=== PATIENT | female | born 1985 | race Caucasian/White ===

== ENCOUNTER 2021-05-26 11:15 | Outpatient (CLI) | payer OTHER, SELFPAY ==
--- NOTE | ~2021-05-26 | MMUS_ITS ---
EXAMINATION: MM diagnostic frederick BI w awais, US breast BI complete HISTORY: Right breast lump, pain TECHNIQUE: ML, MLO and craniocaudal 3-D tomosynthesis images of both breasts were performed and synth etic 2-D images were generated. CAD analysis was submitted and interpreted. High resolution complete bilateral breast ultrasound was performed. COMPARISON: None BREAST PARENCHYMAL COMPOSITION: The breasts are extremely dense, which lowers the sensitivity of mamm ography. FINDINGS: MAMMOGRAPHIC FINDINGS: Scattered punctate benign microcalcifications are noted throughout both breasts. No suspicious mass or architectural distortion, malignant calcification, skin thickening or retractio n of either breast is detected. ULTRASOUND: No suspicious mass or shadowing of either breast is detected. Right breast 3:00 2 cm from nipple: Parallel circumscribed hypoechoic 2.5 x 3.8 x 4.1 mm lesion witho ut suspicious shadowing or internal vascularity, consistent with benign process Left breast 9:00 7 cm from nipple: Parallel circumscribed hypoechoic 3.2 x 2.4 x 3.0 mm lesion withou t internal vascularity or suspicious shadowing Left breast 1:00 8 cm from nipple: Parallel circumscribed hypoechoic 2.3 x 3.4 x 2.8 mm lesion with t hrough transmission posterior enhancement, consistent with benign process, likely cyst IMPRESSION: 1. Benign findings 2. No mammographic evidence of malignancy Routine mammographic screening is recommended Reviewed, dictated and finalized at location A. IMPRESSION: 1. Benign findings 2. No mammographic evidence of malignancy Routine mammographic screening is recommended
== END 2021-05-26 11:16 | disposition home or self-care (01) ==
LOC: ANHIMG 11:21
PROVIDERS: Visit Provider Obstetrics & Gynecology
DX: N64.4 Mastodynia (principal)
CPT/HCPCS: 76641; 77062; 77066; G0279

== ENCOUNTER 2022-06-06 13:20 | Outpatient (CLI) | payer OTHER, SELFPAY ==
--- NOTE | ~2022-06-06 | MMUS_ITS ---
EXAMINATION: MM diagnostic frederick BI w awais, US breast RT limited HISTORY: Palpable lump in the upper outer quadrant of the right breast. TECHNIQUE: Craniocaudal, mediolateral, and mediolateral oblique 3-D tomosynthesis images of the breas ts were performed and synthetic 2-D images were generated. CAD analysis was submitted and interpreted . High resolution limited right breast ultrasound was performed. COMPARISON: 05/26/2021 BREAST PARENCHYMAL COMPOSITION: The breasts are extremely dense, which lowers the sensitivity of mamm ography. FINDINGS: MAMMOGRAPHIC FINDINGS: There is no suspicious mass, calcification, or architectural distortion in either breast to suggest malignancy. There has been no suspicious interval change. No mammographic correlate is identified for the reported palpable abnormality of the right breast. ULTRASOUND: There is no evidence of focal abnormal solid or cystic mass in the vicinity of the reported palpable abnormality of the right breast. IMPRESSION: 1. No specific mammographic or sonographic correlate is identified for the reported palpable abnormal ity of concern. Further evaluation at this time should be based on clinical assessment. Continued fol low-up physical examination is recommended. 2. Recommend routine screening mammography in one year. BI-RADS Category 1: Negative Reviewed, dictated and finalized at location A. IMPRESSION: 1. No specific mammographic or sonographic correlate is identified for the repo rted palpable abnormality of concern. Further evaluation at this time should be based on clinical assessment. Continued follow-up physical examination is massiel mmended. 2. Recommend routine screening mammography in one year. BI-RADS Category 1: Negative
== END 2022-06-06 13:21 | disposition home or self-care (01) ==
PROVIDERS: Visit Provider Nurse Practitioner
DX: N63.11 Unspecified lump in the right breast, upper outer quadrant (principal)
CPT/HCPCS: 76642; 77062; 77066; G0279

== ENCOUNTER 2024-04-20 19:06 | Emergency (ER) | payer BC, SELFPAY ==
--- NOTE | 2024-04-20 19:07 | ED.FEMALEGU ---
HPI - Female Genitourinary General Chief complaint: Urogenital-Female Stated complaint: Uti Symptoms Time Seen by Provider: 04/20/24 19:16 Source: patient and RN notes reviewed Mode of arrival: ambulatory Limitations: no limitations History of Present Illness HPI Narrative: 39-year-old female presents with concern for burning with urination, frequency, suprapubic pressure. Reports that started this evening. Reports history of urinary tract infections. She took azo an hour ago. She reports she has had frequent urinary tract infections, this is the 3rd 1 this year. She denies fever, aches, chills, sweats, nausea, vomiting, back pain, hematuria MD elicited complaint: UTI Related Data Home Medications Medication Instructions Recorded Confirmed sertraline 25 mg tablet 25 mg PO DAILY 04/20/24 04/20/24 Allergies Allergy/AdvReac Type Severity Reaction Status Date / Time Penicillins Allergy Mild Rash Unverified 04/20/24 19:10 nitrofurantoin Allergy Hives Verified 04/20/24 19:19 [From Macrobid] Review of Systems Review of Systems: CONSTITUTIONAL: Denies malaise, chills, sweats, or fever. CARDIOVASCULAR: Denies chest pain, palpitations, or edema. RESPIRATORY: Denies cough or dyspnea. GASTROINTESTINAL: Denies abdominal pain, nausea, vomiting, diarrhea GENITOURINARY: Reports dysuria, frequency, urgency, suprapubic pressure. Denies flank pain or hematuria. SKIN: Denies rash or itching. MUSCULOSKELETAL: Denies back pain or myalgia. All systems reviewed & are unremarkable except as noted in HPI and below PMFSH Social History Social History (System 06/16/21 @ 09:52 by Nell Bean) Second hand tobacco smoke exposure: No Alcohol intake: current Comments At time of signature, agree with nursing past medical, surgical, social and family history. There is no relevant family history pertinent to the presenting complaint Exam Narrative: GENERAL: Well-appearing, well-nourished, and in no acute distress. HEAD: Normocephalic. EYES: PERRLA, conjunctivae clear. NECK: Supple. No lymphadenopathy CHEST: Clear to auscultation. No respiratory distress. HEART: Regular rate and rhythm. ABDOMEN: Soft, nontender upon palpation, nondistended, normal active bowel sounds, no palpable or pulsatile masses, no guarding. No CVA tenderness SKIN: Warm, dry, no rash. NEURO: Alert and oriented x3. PSYCH: Normal mood and affect Course Course Emergency Course: Patient is aware of diagnosis, understands and agrees to treatment plan. Anticipatory guidance given. Patient agrees to follow-up as directed and is aware of reasons to seek care at the emergency department. Portions of this record may have been created with voice recognition software Level of Care: Express Care Visit Vital Signs Vital signs: Vital Signs Temperature 98.3 F 04/20/24 19:12 Pulse Rate 85 04/20/24 19:12 Respiratory Rate 16 04/20/24 19:12 Blood Pressure 127/76 04/20/24 19:12 Pulse Oximetry 100 04/20/24 19:12 Temperature 98.3 F 04/20/24 19:12 Pulse Rate 85 04/20/24 19:12 Respiratory Rate 16 04/20/24 19:12 Blood Pressure 127/76 04/20/24 19:12 Pulse Oximetry 100 04/20/24 19:12 Reviewed. MDM - Female Genitourinary MDM Narrative Medical decision making narrative: Exam findings and UA show no acute concerns or changes; patient is non-toxic appearing and is in no distress. Patient is appropriate for outpatient treatment and follow-up. Differential Diagnosis Differential diagnosis: Likely urinary tract infection and cystitis Lab Data Labs: Lab Results 04/20/24 Range/Units 19:17 POC Urine Color [place] POC Urine Clarity Clear POC Urine pH 6.0 POC Ur Specif [place] 1.005 POC Urine Protein Negative POC Ur Glucose (UA) Trace POC Urine Ketones Negative POC Urine Blood 3+ POC Urine Nitrite Positive POC Urine Bilirubin Negative POC Urine Urobilinogen 0.2 POC U
[2024-04-20 19:12] VITALS: BP 127/76; PULSE 85; RESP 16; TEMP 36.8; O2SAT 100
[2024-04-20 19:19] LABS: EDUAAPPEAR Clear; EDUABILI Negative; EDUABLOOD 3+; EDUACOLOR1 Orange; EDUAGLUCOSE Trace; EDUAKETONE Negative; EDUALEUKO 1+; EDUANITRATE Positive; EDUAPROTEIN Negative; EDUASPGRAVITY 1.005; EDUAUROBILI 0.2
== END 2024-04-20 19:25 | disposition home or self-care (01) ==
PROVIDERS: Emergency Provider Nurse Practitioner
DX: R35.0 Frequency of micturition (principal); R39.15 Urgency of urination; R10.30 Lower abdominal pain, unspecified
CPT/HCPCS: 81003; 87086; 99213; G0463

== ENCOUNTER 2024-05-21 12:45 | Outpatient (CLI) | payer BC, OTHER, SELFPAY ==
--- NOTE | ~2024-05-21 | MMUS_ITS ---
EXAMINATION: MM diagnostic frederick BI w awais, US breast BI complete HISTORY: Right breast lump. Breast pain. TECHNIQUE: Additional 3-D tomosynthesis images of the breasts were performed and synthetic 2-D images were generated. CAD analysis was submitted and interpreted. High resolution bilateral complete breas t ultrasound was performed. COMPARISON: Comparison to multiple prior studies sequentially, with oldest reviewed study dated 04/2021. BREAST PARENCHYMAL COMPOSITION: Dense: The breasts are extremely dense, which lowers the sensitivity of mammography. FINDINGS: MAMMOGRAPHIC FINDINGS: There are benign bilateral breast calcifications. There are no suspicious masses or architectural dis tortion in either breast. ULTRASOUND: Complete US of all 4 quadrants of the breast/s and retroareolar region was reviewed. There are small bilateral cysts including a 5 mm cyst in the right breast at 2:00, 5 cm from the nipple and a [address] in the left breast at 12:00, 2 cm from the nipple. No suspicious solid masses. IMPRESSION: 1. No evidence for malignancy in either breast. 2. Routine yearly screening mammogram and regular clinical breast examination are recommended. BI-RADS CATEGORY 1 - NEGATIVE Reviewed, dictated and finalized at location B. IMPRESSION: 1. No evidence for malignancy in either breast. 2. Routine yearly screening mammogram and regular clinical breast examination a re recommended. BI-RADS CATEGORY 1 - NEGATIVE
== END 2024-05-21 12:46 | disposition home or self-care (01) ==
PROVIDERS: Visit Provider Nurse Practitioner
DX: N64.4 Mastodynia (principal)
CPT/HCPCS: 76641; 77062; 77066; G0279